=== PATIENT | female | born 1970 | race Caucasian/White ===

== ENCOUNTER 2018-04-24 09:17 | Emergency (ER) | payer SELFPAY ==
[~2018-04-24] VITALS: Ht 160 cm; Wt 75.0 kg
[~2018-04-24 09:17] MED LIST: IBUP-232 PO; MULTTAB67 PO; TRAM50TA PO
[2018-04-24 09:34] VITALS: BP 176/96; PULSE 91; RESP 18; TEMP 98.6; O2SAT 96
[2018-04-24] MEDS ORDERED: CLON0.2T PO (09:37)
[2018-04-24] MEDS ORDERED: REST15CA PO (09:37)
--- NOTE | 2018-04-24 09:51 | PD ---
HPI Chief Complaint: Injury Time Seen by Provider: 09:40 Travel History International Travel<30 days: No Contact w/Intl Traveler<30days: No Traveled to known affect area: No History of Present Illness HPI 47 YO F presents to the ED for evaluation of 10/10 left great toe pain. Onset yesterday while palying frisbee with her dog. Patient states that she slipped on a wet deck and her great toe lodged between the boards. Quality is throbbing. Exacerbated by touch and weightbearing. No alleviating factors reported. Endorses mild numbness. Endorses limitations to range of motion secondary to pain. Patient's been treating with 800 mg ibuprofen and ice as tolerated. Last dose of ibuprofen around 8:00 this morning. States last tetanus immunization 3 years ago. Denies any chronic illnesses. PFSH Past Medical History Anxiety: Yes Depression: Yes Headaches: Yes Tetanus Vaccination: < 5 Years ?: Not : 4 Para: 3 Miscarriage: 1 Past Surgical History Section: Yes (X 1) Eye Surgery: Yes Gynecologic Surgery: Yes (CERVICAL ABLATION AND BLADDER SUSPENSION 2008) Hysterectomy: Yes Other Surgery: Yes (BILAT LUMPECTOMY X 6) Social History Alcohol Use: No Tobacco Use: Yes (1- 1 1/2 PPD) Substance Use: No (Denies any substance use/abuse.) Allergies-Medications (Allergen,Severity, Reaction): Coded Allergies: acetaminophen (Unverified Adverse Reaction, Mild, Headache, 04/24/18) propoxyphene (Unverified Adverse Reaction, Mild, Headache, 04/24/18) Reported Meds & Prescriptions Reported Meds & Active Scripts Active Clindamycin (Clindamycin HCl) 150 Mg Cap 450 Mg PO Q6H 7 Days Ibuprofen 800 Mg Tab 800 Mg PO Q8H PRN Reported Restoril (Temazepam) 15 Mg Cap 15 Mg PO HS PRN Clonidine (Clonidine HCl) 0.2 Mg Tab 0.2 Mg PO DAILY Ibuprofen 600 Mg Tab 600 Mg PO Q4HR PRN Review of Systems Except as stated in HPI: all other systems reviewed are Neg Physical Exam Narrative GENERAL: Well-nourished, well-developed white female in NAD. SKIN: Focused skin assessment warm/dry. HEAD: Normocephalic. EYES: No scleral icterus. No injection or drainage. NECK: Supple, trachea midline. No JVD or lymphadenopathy. CARDIOVASCULAR: Regular rate and rhythm without murmurs, gallops, or rubs. RESPIRATORY: Breath sounds equal bilaterally. No accessory muscle use. GASTROINTESTINAL: Abdomen soft, non-tender, nondistended. MUSCULOSKELETAL: No cyanosis, or edema. FOCUSED LEFT LOWER EXTREMITY EXAM: 2+ DP pulse. Ecchymosis at the base of the great toe. Edema of the forefoot. Superficial laceration lateral to the great toenail. No active bleeding. TTP of the MP joint of the great toe. Squeeze test negative. No tenderness palpation of the base of the fifth of the navicular. Patient is able to wiggle toes 2 through 5. Sensation intact to light touch distally on each digit. Cap refill less than 2 seconds on each digit. BACK: Nontender without obvious deformity. No CVA tenderness. Data Data Last Documented VS Vital Signs Date Time Temp Pulse Resp B/P (MAP) Pulse Ox O2 Delivery O2 Flow Rate FiO2 04/24/18 09:34 98.6 91 18 176/96 (122) 96 Orders Orders Foot, Complete ([id number]) (04/24/18 09:45) Ice/Cold Pack (04/24/18 09:45) Post Op Boot (Shoe) (04/24/18 ) Crutches (04/24/18 10:24) Mandatory Outpatient Referral (04/24/18 10:24) Ed Discharge Order (04/24/18 10:29) Tramadol (Ultram) (04/24/18 10:45) MDM Medical Decision Making Medical Screen Exam Complete: Yes Emergency Medical Condition: Yes Differential Diagnosis Laceration versus fracture versus sprain versus dislocation versus other Narrative Course 47-year-old female presents the ED for evaluation of left great toe pain after fall on a deck yesterday. On exam there is edema, ecchymosis and a superficial laceration. Neurovascularly intact. X-rays confirmed nondisplaced fracture distal phalanx great toe. Patient states tetanus is up-to-date. I do not think this is an open fracture, but will cover for secondary infection of the laceration. She is provided a course of clindamycin, postop shoe, crutches. Mandatory outpatient consult was placed with podiatry. Patient was given detailed instructions on wound care, use of crutches, mandatory outpatient consult process. She indicated understanding of instructions. She is agreeable to the care plan. She is stable and discharged home. Diagnosis Primary Impression: Fracture of great toe, left, closed Qualified Codes: S92.425A - Nondisplaced fracture of distal phalanx of left great toe, initial encounter for closed fracture Referrals: Carlos Enrique Zapata DPM Patient Instructions: General Instructions, Toe Fracture (ED) Departure Forms: Tests/Procedures, Work Release Enter return to work date: April 25, 2018 Special Instructions: No weight bearing on left foot until cleared by podiatry. Additional Instructions: Rest, ice, elevate the extremity. Apply ice no longer than 10-15 minutes per hour a few times a day. Keep the laceration clean, dry and covered. 800 mg ibuprofen up to 3 times a day as needed for pain. Toe-touch weightbearing as tolerated. DO NOT wear flip flops or sandals while using crutches. Begin antibiotics today and take them as prescribed until every pill is gone. A mandatory outpatient consult has been placed on your behalf with the solar power installer. The solar power installer office or the hospital will be in touch in 5-7 days to schedule follow-up. If this does not occur, call the [facility] patient assistance program. Follow up with podiatry as discussed. Return to the ED for any urgent or emergent medical condition. Med/Other Pt SpecificInfo: Prescription(s) given Scripts Clindamycin (Clindamycin) 150 Mg Cap 450 MG PO Q6H for Infection for 7 Days, #84 CAP 0 Refills Prov: Toney John MD 04/24/18 Ibuprofen (Ibuprofen) 800 Mg Tab 800 MG PO Q8H Y for Pain/Inflammation, #15 TAB 0 Refills Prov: Toney John MD 04/24/18 Disposition: 01 DISCHARGE HOME Condition: Stable Daysi Musa April 24, 2018 09:51
[2018-04-24] MEDS ORDERED: IBUP1TAB7 PO (10:29)
[2018-04-24] MEDS ORDERED: CLIN150C14 PO (10:37)
--- NOTE | 2018-04-24 10:40 | RADRPT ---
EXAM DATE: 04/24/2018 10:10 AM EDT AGE/SEX: 47 years / Female INDICATIONS: First digit and anterior aspect of foot pain after getting caught on deck. CLINICAL DATA: This is the patient's initial encounter. Patient reports that signs and symptoms have been present for 2 days and indicates a pain score of 9/10. MEDICAL/SURGICAL HISTORY: None. None. COMPARISON: No prior [facility] exams available for comparison. FINDINGS: AP, lateral and oblique views of the left foot were obtained and demonstrate a nondisplaced oblique f racture through the base of the first distal phalanx. This extends into the interphalangeal joint. Th ere is mild overlying soft tissue swelling. No other bony abnormalities are identified. CONCLUSION: Nondisplaced fracture through the first distal phalanx. Electronically signed by: Rigoberto Fields MD 04/24/2018 10:39 AM EDT
[2018-04-24] MEDS ORDERED: traMADol HCL 50 MG TAB PO ONE (10:45)
== END 2018-04-24 11:09 | disposition home or self-care (01) ==
LOC: NEPK 09:17
DX: S92.425A Nondisplaced fracture of distal phalanx of left great toe, initial encounter for closed fracture (principal); W01.0XXA Fall on same level from slipping, tripping and stumbling without subsequent striking against object, initial encounter; Y93.74 Activity, frisbee; Y92.89 Other specified places as the place of occurrence of the external cause
CPT/HCPCS: 73630; 99283; E0113; L3260